=== PATIENT | male | born 1950 | race Caucasian/White ===

== ENCOUNTER 2019-11-08 20:26 | Emergency (ER) | payer BC, MEDICARE ==
[~2019-11-08] VITALS: Ht 180.3 cm; Wt 122.6 kg
[2019-11-08] MEDS ORDERED: ACETAMINOPHEN TAB 650MG DOSE (2X325MG) PO ONE (21:30)
[2019-11-08 22:15] LABS: BASO % 0.2 % (0.0-1.0); EOS # 0.1 10^3/uL (0.0-0.5); HEMATOCRIT 45.1 % (42.0-52.0); LYMPH # 1.1 10^3/uL (1.5-5.0); LYMPH % 8.7 % (24.0-44.0); MEAN CORPUSCULAR HEMOGLOBIN 26.5 pg (27.0-33.0); MEAN CORPUSCULAR VOLUME 85.3 fl (80.0-96.0); MONO # 1.2 10^3/uL (0.0-0.8); MONO % 9.7 % (0.0-5.0); NEUTROPHILS # 10.3 10^3/uL (1.5-8.5); PLATELET COUNT, AUTOMATED 207 10^3/uL (150-450); RED BLOOD COUNT 5.29 10^6/uL (4.30-6.10); WHITE BLOOD COUNT 12.8 10^3/uL (4.0-10.0)
[2019-11-08 22:27] LABS: PLATELET CLUMPS SMALL AMT; PLATELET ESTIMATE NORMAL (NORMAL)
[2019-11-08 22:52] LABS: ALBUMIN 3.4 GM/DL (3.2-5.2); BILIRUBIN,DIRECT 0.2 MG/DL (0.0-0.2); BILIRUBIN,TOTAL 0.8 MG/DL (0.2-1.0); CALCIUM LEVEL 8.7 MG/DL (8.8-10.2); CREATININE FOR GFR 1.41 MG/DL (0.70-1.30); GLOMERULAR FILTRATION RATE 52.7 (>42); POTASSIUM SERUM 4.6 MEQ/L (3.5-5.1); TOTAL PROTEIN 7.4 GM/DL (6.4-8.2)
[2019-11-09 00:35] VITALS: BP 172/92
--- NOTE | 2019-11-09 08:09 | REP ---
Lumbar spine series: Five views. History: Low back pain. Findings: Lumbar vertebral body heights are preserved. Alignment is normal. There is mild disc space narrowing at the L3-4 and discogenic spurring is seen at this level as well as each of the other lumbar levels. The other disc spaces are preserved. There is no evidence of spondylolysis or spondylolisthesis. Mild facet purging is present bilaterally at L5-S1 and L4-5. Sacrum and SI joints are intact. Psoas margins are symmetric. Impression: Mild degenerative spondylosis changes. No acute abnormality. Electronically Signed by Nilesh Perkins MD 11/09/2019 08:00 A
[2019-11-09] MEDS ORDERED: NORC1TAB7 PO (12:10)
[2019-11-09] MEDS ORDERED: FLOM0.4C39 PO (12:12)
== END 2019-11-09 00:36 | disposition home or self-care (01) ==
LOC: M ED 20:26
DX: M54.5 Low back pain (principal)

== ENCOUNTER 2019-11-09 10:03 | Emergency (ER) | payer MEDICARE ==
[~2019-11-09] VITALS: Ht 177.8 cm; Wt 122.5 kg
--- NOTE | 2019-11-09 11:23 | REP ---
CT ABDOMEN AND PELVIS WITHOUT IV OR ORAL CONTRAST: HISTORY: Right flank pain. Comparison CT study is from October 11, 2005. CT FINDINGS: Digital preliminary oil scout radiograph is unremarkable. Normal bowel gas pattern is seen. The lung bases show mild linear plate-like atelectasis and/or fibrosis bilaterally. No pleural effusion is seen. There is a small sliding-type hiatal hernia. There is mild to moderate fatty infiltration of the liver diffusely. There are granulomatous calcifications in the spleen. Post cholecystectomy clips are noted. No abnormality is noted in the pancreas. Normal adrenal glands are observed. There is a faint calcification in the lower pole of the left kidney. No left-sided hydronephrosis, mass, or intrarenal calculus seen. On the right there is moderate hydronephrosis and hydroureter. This is seen to be due to a obstructive distal ureteral calculus located at mid pelvic level, several centimeters above the UVJ. This calculus measures 5 mm in greatest diameter. There is periureteral edema associated with this. No bladder calculus is seen. Prostate and seminal vesicles are unremarkable. No left ureteral calculus is observed. There is a small cyst in the right kidney laterally. There is left colonic diverticulosis without CT evidence of diverticulitis. The scan is otherwise unremarkable. No abdominal wall defect or bony destructive lesion is seen. IMPRESSION: 5 mm obstructive distal ureteral calculus on the right with moderate right-sided hydronephrosis. Electronically Signed by Nilesh Perkins MD 11/09/2019 12:49 P
[2019-11-09] MEDS ORDERED: ONDANSETRON 4MG/2ML VIAL IV ONE (11:30)
[2019-11-09] MEDS ORDERED: MORPHINE 2 MG/ML 1ML VIAL (J2270) IV ONE (11:30)
[2019-11-09 11:32] LABS: BASO % 0.3 % (0.0-1.0); EOS # 0.1 10^3/uL (0.0-0.5); EOS % 0.8 % (0.0-3.0); HEMATOCRIT 41.7 % (42.0-52.0); HEMOGLOBIN 13.2 g/dl (13.5-17.5); LYMPH % 9.5 % (24.0-44.0); MEAN CORPUSCULAR HEMOGLOBIN 26.7 pg (27.0-33.0); MEAN CORPUSCULAR HGB CONC 31.7 g/dl (32.0-36.5); MEAN CORPUSCULAR VOLUME 84.2 fl (80.0-96.0); MONO # 1.5 10^3/uL (0.0-0.8); MONO % 13.6 % (0.0-5.0); NEUTROPHILS # 8.1 10^3/uL (1.5-8.5); NEUTROPHILS % 75.4 % (36.0-66.0); PLATELET COUNT, AUTOMATED 199 10^3/uL (150-450); RED BLOOD COUNT 4.95 10^6/uL (4.30-6.10); WHITE BLOOD COUNT 10.7 10^3/uL (4.0-10.0)
[2019-11-09] MEDS ORDERED: NORC1TAB7 PO (12:10)
[2019-11-09] MEDS ORDERED: FLOM0.4C39 PO (12:12)
[2019-11-09] MEDS ORDERED: MORPHINE 4 MG/ML 1ML VIAL/SYRINGE (J2270) IV PRN (12:15)
[2019-11-09 12:36] VITALS: BP 147/70
== END 2019-11-09 13:03 | disposition home or self-care (01) ==
LOC: M ED 10:03
DX: N20.1 Calculus of ureter (principal); Z87.442 Personal history of urinary calculi
CPT/HCPCS: 74176; 80047; 81001; 85025; 96374; 96375; 99284; J2270; J2405

== ENCOUNTER 2019-11-11 18:12 | Emergency (ER) | payer MEDICARE ==
[~2019-11-11] VITALS: Ht 177.8 cm; Wt 122.0 kg
[~2019-11-11 18:12] MED LIST: FLOM0.4C39 PO; NORC1TAB7 PO
[2019-11-11 19:24] LABS: BASO % 0.2 % (0.0-1.0); EOS # 0.1 10^3/uL (0.0-0.5); HEMATOCRIT 40.5 % (42.0-52.0); HEMOGLOBIN 12.9 g/dl (13.5-17.5); LYMPH # 1.1 10^3/uL (1.5-5.0); LYMPH % 10.9 % (24.0-44.0); MEAN CORPUSCULAR HEMOGLOBIN 27.2 pg (27.0-33.0); MEAN CORPUSCULAR HGB CONC 31.9 g/dl (32.0-36.5); MEAN CORPUSCULAR VOLUME 85.4 fl (80.0-96.0); MONO # 1.1 10^3/uL (0.0-0.8); MONO % 11.2 % (0.0-5.0); NEUTROPHILS # 7.5 10^3/uL (1.5-8.5); NEUTROPHILS % 76.3 % (36.0-66.0); PLATELET COUNT, AUTOMATED 216 10^3/uL (150-450); RED BLOOD COUNT 4.74 10^6/uL (4.30-6.10); WHITE BLOOD COUNT 9.8 10^3/uL (4.0-10.0)
[2019-11-11 19:57] LABS: ALBUMIN 3.2 GM/DL (3.2-5.2); BILIRUBIN,DIRECT 0.2 MG/DL (0.0-0.2); BILIRUBIN,TOTAL 0.6 MG/DL (0.2-1.0); TOTAL PROTEIN 6.9 GM/DL (6.4-8.2)
[2019-11-11] MEDS ORDERED: NS 1,000 ML IV ONE ×2 (21:00→22:30)
--- NOTE | 2019-11-11 22:22 | REPVR ---
PROCEDURE INFORMATION: Exam: CT Abdomen And Pelvis Without Contrast Exam date and time: 11/11/2019 9:47 PM Age: 69 years old Clinical indication: Condition or disease; Kidney or ureter condition; Other: Known stone; Additional info: R flank pain, can't pee TECHNIQUE: Imaging protocol: Computed tomography of the abdomen and pelvis without contrast. Radiation optimization: All CT scans at this facility use at least one of these dose optimization techniques: automated exposure control; mA and/or kV adjustment per patient size (includes targeted exams where dose is matched to clinical indication); or iterative reconstruction. COMPARISON: CT ABD PELVIS W/O CONTRAST 11/09/2019 10:18 AM FINDINGS: Lungs: No suspicious mass or airspace process in the visualized lung bases. Mediastinal space: Small hiatal hernia measuring 3 cm is present. Liver: Liver is decreased in density, consistent with fatty infiltration. Gallbladder and bile ducts: Gallbladder is surgically absent. Pancreas: Noncontrast pancreas shows no obvious mass or adjacent fluid. Spleen: Noncontrast spleen shows no obvious focal deformity. Adrenals: Adrenal glands are normal in appearance. Kidneys and ureters: Left kidney demonstrates no stone or obstruction. Right kidney demonstrates a non obstructing punctate midpole calculus, stable exophytic cyst and mild right hydroureteronephrosis which appears to be secondary to an irregular 3 x 2 mm distal right ureter stone just proximal to the right UVJ, axial image 129. Stomach and bowel: No evidence of small bowel obstruction. Diverticular changes are present within the colon without inflammation. Appendix: Normal caliber appendix is identified, with no adjacent inflammation. Intraperitoneal space: No pneumoperitoneum. Vasculature: No aortic aneurysm. Lymph nodes: No enlarged lymph nodes. Bladder: Urinary bladder appears normal. Bones/joints: Bony structures are normal except for lumbar spine degenerative disc changes and remote left obturator ring deformity that is healed. Other findings: Limited evaluation without enteric or IV contrast. IMPRESSION: 1. Mild right hydroureteronephrosis secondary to a 3 x 2 mm distal right ureter stone just proximal to the right UVJ. 2. Hepatic steatosis. 3. Extensive colonic diverticulosis without active inflammation Electronically signed by: Bright Marroquin On 11/11/2019 22:21:56 PM
[2019-11-11 22:35] VITALS: BP 150/72
[2019-11-11] MEDS ORDERED: FLOM0.4C39 PO (23:11)
[2019-11-11] MEDS ORDERED: CIPR-249 PO (23:11)
[2019-11-11] MEDS ORDERED: CIPROFLOXACIN 500MG TABLET PO ONE (23:15)
[2019-11-11] MEDS ORDERED: MAGNESIUM CITRATE 300 ML BTL PO ONE (23:15)
[2019-11-11] MEDS ORDERED: TAMSULOSIN 0.4 MG CAP PO ONE (23:15)
--- NOTE | 2019-11-12 11:48 | REP ---
REASON: Constipation. PRIORS: None. FINDINGS: KUB shows the intestinal gas pattern to be nonspecific. The organ silhouettes insofar as delineated are unremarkable. There is no evidence of free intraperitoneal air. IMPRESSION: Nonspecific. The stool pattern appears to be within normal limits. Electronically Signed by Will Andrade DO 11/12/2019 11:58 A
== END 2019-11-11 23:28 | disposition home or self-care (01) ==
LOC: M ED 18:12
DX: N20.1 Calculus of ureter (principal); N13.39 Other hydronephrosis; N39.0 Urinary tract infection, site not specified; K59.00 Constipation, unspecified; Z79.899 Other long term (current) drug therapy

== ENCOUNTER 2022-06-13 14:23 | Emergency (ER) | payer MEDICARE, OTHER ==
[~2022-06-13] VITALS: Ht 172.7 cm; Wt 125.0 kg
[~2022-06-13 14:23] MED LIST changes: +CIPR-249 PO
[2022-06-13 18:35] VITALS: BP 186/92
== END 2022-06-13 18:37 | disposition home or self-care (01) ==
LOC: M ED 14:23
DX: S89.92XA Unspecified injury of left lower leg, initial encounter (principal); W01.0XXA Fall on same level from slipping, tripping and stumbling without subsequent striking against object, initial encounter; Y92.481 Parking lot as the place of occurrence of the external cause; E66.9 Obesity, unspecified; E78.5 Hyperlipidemia, unspecified